=== PATIENT | female | born 1940 | race Caucasian/White ===

== ENCOUNTER → 2023-09-16 14:35 | Outpatient (REF) | payer MEDICARE, SELFPAY | LOC: RAD 14:35 | PROVIDERS: ATTENDING PHYSICIAN Internal Medicine Critical Care Medicine | DX: R91.1 Solitary pulmonary nodule (principal); J47.9 Bronchiectasis, uncomplicated; R07.9 Chest pain, unspecified | CPT/HCPCS: 71275; Q9967 ==

== ENCOUNTER → 2023-10-14 14:47 | Outpatient (REF) | payer MEDICARE, SELFPAY | LOC: PAVMRI 14:47 | PROVIDERS: ATTENDING PHYSICIAN Internal Medicine Critical Care Medicine; FAMILY PHYSICIAN Internal Medicine | DX: R91.8 Other nonspecific abnormal finding of lung field (principal); R59.0 Localized enlarged lymph nodes; E27.8 Other specified disorders of adrenal gland | CPT/HCPCS: 74183; A9575 ==

== ENCOUNTER → 2024-08-16 09:56 | Outpatient (REF) | payer MEDICARE, SELFPAY | LOC: HWRAD 09:56 | PROVIDERS: ATTENDING PHYSICIAN Internal Medicine Critical Care Medicine; FAMILY PHYSICIAN Internal Medicine | DX: R91.1 Solitary pulmonary nodule (principal); A31.0 Pulmonary mycobacterial infection; J47.9 Bronchiectasis, uncomplicated | CPT/HCPCS: 71250 ==

== ENCOUNTER 2024-09-14 06:26 | Day surgery (SDC) | payer MEDICARE, SELFPAY ==
--- NOTE | 2024-09-09 14:32 | PTCARENOTE ---
Patients 08/[address] abnormal- reviewed by Dr. Caro- no additional interventions required- pulm ordered ct scan- aware of results
[2024-09-14 09:28] VITALS: BMI 19.1
[2024-09-14 09:29] VITALS: BP 137/69; BMI 19.1
[2024-09-14] MEDS: CYCLOGYL 1% EYE DROPS 1 DROP OPHTH (10:32)
[2024-09-14] MEDS: POLYTRIM OPHTHALMIC SOLUTION 1 DROP OPHTH (10:32)
[2024-09-14] MEDS: ALCAINE 0.5% EYE DROPS 2 DROP OPHTH (10:32)
[2024-09-14] MEDS: MYDRIACYL 1 DROP OPHTH (10:33)
[2024-09-14] MEDS: ACUVAIL 10 DROPS OPHTH (10:33)
[2024-09-14] MEDS: PRED FORTE 1% EYE DROPS 1 DROP OPHTH (10:33)
[2024-09-14] MEDS: NEO-SYNEPHRINE 2.5% OPH SOL. 1 DROP OPHTH (10:33)
[2024-09-14] MEDS: AKTEN OPHTHALMIC GEL 1 ML OPHTH (10:34)
[2024-09-14 12:10] VITALS: BP 119/60
== END 2024-09-14 12:50 | disposition home or self-care (01) ==
LOC: SDS 06:26
PROVIDERS: ATTENDING PHYSICIAN Ophthalmology
PROC: 08RK3JZ Replacement of Left Lens with Synthetic Substitute, Percutaneous Approach (ICD-10-PCS; 2024-09-14)
DX: H25.12 Age-related nuclear cataract, left eye (principal)
CPT/HCPCS: 66984

== ENCOUNTER → 2024-09-21 11:50 | Outpatient (REF) | payer MEDICARE, SELFPAY | LOC: HWRCS 11:50 | PROVIDERS: ATTENDING PHYSICIAN Internal Medicine | DX: I25.10 Atherosclerotic heart disease of native coronary artery without angina pectoris (principal) | CPT/HCPCS: 78452; 93017; A9500 ==

== ENCOUNTER 2024-09-28 06:29 | Day surgery (SDC) | payer MEDICARE, SELFPAY ==
[2024-09-28 06:20] VITALS: BP 113/91
[2024-09-28] MEDS: ALCAINE 0.5% EYE DROPS 1 DROP OPHTH (06:28)
[2024-09-28] MEDS: POLYTRIM OPHTHALMIC SOLUTION 1 DROP OPHTH (06:29)
[2024-09-28] MEDS: MYDRIACYL 1 DROP OPHTH (06:30)
[2024-09-28] MEDS: CYCLOGYL 1% EYE DROPS 1 DROP OPHTH (06:30)
[2024-09-28] MEDS: NEO-SYNEPHRINE 2.5% OPH SOL. 1 DROP OPHTH (06:31)
[2024-09-28] MEDS: PRED FORTE 1% EYE DROPS 1 DROP OPHTH (06:31)
[2024-09-28] MEDS: ACUVAIL 1 DROPS OPHTH (06:31)
[2024-09-28] MEDS: AKTEN OPHTHALMIC GEL 1 ML OPHTH (06:32)
[2024-09-28 07:51] VITALS: BP 122/58
== END 2024-09-28 08:25 | disposition home or self-care (01) ==
LOC: SDS 06:29
PROVIDERS: ATTENDING PHYSICIAN Ophthalmology
PROC: 08RJ3JZ Replacement of Right Lens with Synthetic Substitute, Percutaneous Approach (ICD-10-PCS; 2024-09-28)
DX: H25.11 Age-related nuclear cataract, right eye (principal)
CPT/HCPCS: 66984

== ENCOUNTER → 2024-12-16 11:27 | Outpatient (REF) | payer MEDICARE, SELFPAY | LOC: HWRAD 11:27 | PROVIDERS: ATTENDING PHYSICIAN Otolaryngology; FAMILY PHYSICIAN Internal Medicine | DX: J32.0 Chronic maxillary sinusitis (principal); J30.1 Allergic rhinitis due to pollen | CPT/HCPCS: 70486 ==

== ENCOUNTER → 2025-01-17 11:35 | Outpatient (REF) | payer MEDICARE, SELFPAY | LOC: RAD 11:35 | PROVIDERS: ATTENDING PHYSICIAN Internal Medicine Rheumatology; FAMILY PHYSICIAN Internal Medicine | DX: M81.0 Age-related osteoporosis without current pathological fracture (principal) | CPT/HCPCS: 77080 ==

== ENCOUNTER → 2025-03-08 12:29 | Outpatient (REF) | payer MEDICARE, SELFPAY | LOC: HWRAD 12:29 | PROVIDERS: ATTENDING PHYSICIAN Internal Medicine Critical Care Medicine; FAMILY PHYSICIAN Internal Medicine | DX: R93.89 Abnormal findings on diagnostic imaging of other specified body structures (principal); J47.9 Bronchiectasis, uncomplicated | CPT/HCPCS: 71250 ==

== ENCOUNTER → 2025-05-30 11:22 | Outpatient (REF) | payer MEDICARE, SELFPAY ==
[2025-05-30 11:30] VITALS: BP 142/76; BP_SYST 89
[2025-05-30 12:38] VITALS: BP 134/60
== END ==
LOC: RADI 11:22
PROVIDERS: ATTENDING PHYSICIAN Internal Medicine Infectious Disease; FAMILY PHYSICIAN Internal Medicine
DX: J15.211 Pneumonia due to Methicillin susceptible Staphylococcus aureus (principal)
CPT/HCPCS: 36573; C1751

== ENCOUNTER 2025-05-30 12:43 | Outpatient (RCR) | payer MEDICARE, SELFPAY ==
[2025-05-30] MEDS: ANCEF 60 MG IV (14:13)
[2025-05-30 14:19] VITALS: BP 132/57
== END 2025-05-31 08:48 | disposition home or self-care (01) ==
LOC: OID 12:43
PROVIDERS: ATTENDING PHYSICIAN Internal Medicine Infectious Disease
DX: J15.211 Pneumonia due to Methicillin susceptible Staphylococcus aureus (principal); J47.0 Bronchiectasis with acute lower respiratory infection; D80.1 Nonfamilial hypogammaglobulinemia; E87.6 Hypokalemia; D50.9 Iron deficiency anemia, unspecified
CPT/HCPCS: 96365